=== PATIENT | male | born 2000 | race African-American/Black ===

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

== ENCOUNTER 2024-05-07 11:12 | Emergency (ER) | payer OTHER, SELFPAY ==
[2024-05-07 11:13] VITALS: BP 176/94; PULSE 80; RESP 16; TEMP 36.7; O2SAT 99; BMI 38.7
--- NOTE | 2024-05-07 11:46 | CT_ITS ---
STUDY: CT ABDOMEN AND PELVIS WITH CONTRAST REASON FOR EXAM: Male, 24 years old. Left lower quadrant pain RADIATION DOSAGE (If Supplied By Facility): CTDIvol = ( 17.08 ) mGy, DLP = ( 1287.10 ) mGycm TECHNIQUE: Transaxial images were obtained from the dome of the diaphragm to the symphysis pubis without oral contrast. IV 100mL Isovue-300 was administered. Sagittal and coronal images were reconstructed. Individualized dose optimization techniques were used for this CT. COMPARISON: Comparison is made with prior study dated November 28, 2016. FINDINGS: The visualized lung bases are unremarkable. The visualized portions of the heart are within normal limits. Normal liver. Normal gallbladder and extrahepatic biliary system. Normal spleen. Normal pancreas. Normal bilateral adrenal glands. Normal right kidney. Normal left kidney. Normal visualized stomach. Normal small intestine. There are scattered colonic diverticula consistent with diverticulosis. The appendix is visualized and appears normal. Normal abdominal aorta. Normal inferior vena cava. Normal retroperitoneum. Normal urinary bladder. Normal abdominal wall. Normal osseous structures. CT/Abdomen/Pelvis W IV Cont ONLY IMPRESSION: Scattered sigmoid diverticula. Electronically Signed: Vinayak Lee MD at 12:28 EDT ,
--- NOTE | 2024-05-07 11:47 | EDS_ITS ---
HPI HPI - GI History of Present Illness Chief Complaint: Abd Pain Narrative Narrative: 24-year-old male who denies significant past medical history presents from urgent care with lower quadrant pain that began on Tuesday, approximately 6 days ago. He states that he notices it more when he stands. It is hard for him to describe. He denies any fevers or chills, no nausea or vomiting. No dysuria or hematuria, no problems with bowel movements. He states that when he is being evaluated in urgent care, he had suprapubic to bilateral lower quadrant abdominal pain. They told him that he needed to immediately come to the emergency department because of his continued pain. PFSH PFS Home Medications ?Medication ?Instructions ?Recorded ?Last Taken ?Type albuterol sulfate 2.5 mg/3 mL 2.5 mg inhalation Q6H PRN PRN Sob 02/10/18 Unknown History (0.083 %) solution for nebulization &/Or Wheezing albuterol sulfate 90 mcg/actuation 1 - 2 puff inhalation Q6H PRN PRN 02/10/18 Unknown History aerosol inhaler (Ventolin HFA) Sob &/Or Wheezing Allergy/AdvReac Type Severity Reaction Status Date / Time azithromycin (From Zithromax) Allergy Hives Verified 05/07/24 11:15 Social History Smoking Status: Former smoker ROS ROS ED ROS Narrative Constitutional: No fever, no chills. HEENT: No sore throat. No neck pain. No loss of vision. No rhinorrhea. Cardiovascular: No chest pain. No palpitations. No pedal edema. Respiratory: No cough, no shortness of breath. Abdominal: Suprapubic to bilateral lower quadrant abdominal pain. No nausea. No vomiting. No diarrhea. Genitourinary: No dysuria. No hematuria. Musculoskeletal: No myalgias. No arthralgias. Neurologic: No headaches. No dizziness. No lightheadedness. Skin: No rash. No change in color. Psychiatric: No depression. No anxiety. EXAM Physical Exam Narrative Exam Narrative: Afebrile. Vital signs noted. HEENT: Normocephalic. Atraumatic. PERRL, EOMI. Neck soft and supple. No point tenderness or step off. Cardiovascular: Regular rate and rhythm. No murmurs, rubs, or gallops appreciated. Respiratory: No tachypnea. Lungs clear to auscultation bilaterally. Gastrointestinal: Abdomen soft, mild tenderness to palpation suprapubic to left lower quadrant with normoactive bowel sounds. No rebound or guarding. Neurological: Awake. Alert. Nonfocal, nonlateralizing. Skin: No rash. Normal color. No pallor. Musculoskeletal: No pedal edema. Full range of motion extremities. Const Vital Signs: 05/07/24 11:13 Temperature 98.1 F Temperature Source Temporal Pulse Rate 80 Respiratory Rate 16 Blood Pressure 176/94 H Blood Pressure Mean 121 Pulse Ox 99 Oxygen Delivery Method Room Air MDM MDM MDM Narrative Medical decision making narrative: Although on examination the patient has more left lower quadrant abdominal pain, he was complaining of right lower quadrant abdominal pain at urgent care. Differential diagnosis includes but not limited to acute appendicitis versus cy stitis versus diverticulitis. I have low suspicion for obstruction as the history and physical does not support this. He is showing no other signs for his abdominal pain. He may have more of an abdominal wall strain as well. Comprehensive workup was pursued. I reviewed his laboratory work and he has a normal white count of 7.2 with hemoglobin normal at 15.7, platelet count normal at 275. Electrolyte panel is grossly unremarkable, LFTs are normal with an AST of 21 and ALT of 27. I do not feel lipase is indicated because his pain is all lower. Urinalysis did show 10- 25 WBCs, but the patient is not having dysuria. Through shared decision making, urine will be sent for culture and I deferred antibiotics until cultures return. Upon repeat examination at approximately 1300, patient is resting comfortably. I am unsure as to the cause of his abdominal pain as I reviewed the CT radiology report which shows no evidence of an acute process. He may be having more abdominal wall pain and I do feel that [id number] medications are sufficient in treating his pain. He has diverticuli without evidence of diverticulitis. At this point in time, he will be discharged to follow-up with his primary care provider. Return instructions to the emergency department were reviewed. Disposition is discharged home in stable condition. History & Record Review Discussion w/independent historian: Patient Lab Data Attestation: I reviewed the patient's lab results. Labs: Laboratory Results - last 24 hr 05/07/24 05/07/24 11:35 11:53 WBC 7.2 RBC 5.85 Hgb 15.7 Hct 47.1 MCV 80.5 MCH 26.8 L MCHC 33.3 RDW Std Deviation 36.6 RDW Coeff of Coleman 12.7 Plt Count 275 MPV 9.1 Immature Gran % (Auto) 0.300 Neut % (Auto) 53.8 Lymph % (Auto) 37.7 [place] % (Auto) 6.5 Eos % (Auto) 1.0 Baso % (Auto) 0.7 Absolute Neuts (auto) 3.9 Absolute Lymphs (auto) 2.72 Nucleated RBC % 0 Sodium 138 Potassium 3.9 Chloride 107 Carbon Dioxide 26.0 Anion Gap 5 BUN 13 Creatinine 0.86 Estim Creat Clear Calc 176.82 Est GFR (MDRD) Af Amer 144 Est GFR (MDRD) Non-Af 119 BUN/Creatinine Ratio 15.2 Glucose 96 Calcium 9.3 Total Bilirubin 0.50 AST 21 ALT 27 Alkaline Phosphatase 63 Total Protein 7.4 Albumin 4.1 Globulin 3.3 Albumin/Globulin Ratio 1.2 Urine Color Yellow Urine Clarity Sl. Cloudy Urine pH 6.0 Ur Specific Pound 1.015 Urine Protein Negative Urine Glucose (UA) Normal Urine Ketones Negative Urine Occult Blood Negative Urine Nitrite Negative Urine Bilirubin Negative Urine Urobilinogen Normal Ur Leukocyte Esterase 100 H Urine RBC 0 SEEN Urine WBC 10-25 SEEN Ur Squamous Epith Cells 0-5 SEEN Urine Bacteria 1+ Urine Mucus 0 SEEN Radiography Diagnostic Testing: Clinical Impression(s) from Imaging Studies Abdomen/Pelvis CT 05/07/24 11:46 IMPRESSION: Scattered sigmoid diverticula. Electronically Signed: Vinayak Lee MD at 12:28 EDT , Discharge Plan Triage Chief Complaint: Abd Pain ED Provider: Javier Viera Dx/Rx/DC Orders Clinical Impression: Abdominal pain Instructions: ED Abdominal Pain Unkn Cause Male... Prescriptions: No Action albuterol sulfate 2.5 MG/3 ML solution for nebulization 2.5 mg inhalation Q6H PRN PRN (Reason: Sob &/Or Wheezing) albuterol sulfate [Ventolin HFA] 1 INHALER inhaler 1 - 2 puff inhalation Q6H PRN PRN (Reason: Sob &/Or Wheezing) Primary Care Provider: Omar Acuña Referrals: Mandy Jaramillo MD [Non-Staff] - Omar Acuña MD [Primary Care Provider] - 1 Week if not improving Print Language: Citizen Of [place] Disposition Disposition: Home, Self Care
[2024-05-07] MEDS: 0.9% Normal Saline (1000mL) 1,000 ML 999 ML IV (11:54)
[2024-05-07 11:55] LABS: Absolute Lymphocyte Count 2.72 X10^3/uL (0.83-4.51); Absolute Neutrophil Count 3.9 X10^3/uL (2.0-7.7); Basophil# 0.05 X10^3/uL; Basophil% 0.7 % (0-1); Eosinophil# 0.07 X10^3/uL; Hematocrit 47.1 % (40-54); Hemoglobin 15.7 g/dL (13.0-16.5); Lymphocyte # 2.72 X10^3/ul (0.83-4.51); Lymphocyte % 37.7 % (19-41); Mean Corp Hgb Conc 33.3 g/dL (32-36); Mean Corpuscular Hgb 26.8 pg (27.0-32.0); Mean Corpuscular Volume 80.5 fL (80-94); Mean Platelet Vol. 9.1 fl (6.2-12.0); Monocyte# 0.47 X10^3/uL; Monocyte% 6.5 % (0-10); NRBC Flagged by Analyzer 0 % (0-5); Neutrophil # 3.89 X10^3/uL (2.7-7.7); Neutrophil % 53.8 % (47-70); Platelet Count 275 K/mm3 (150-450); RBC Distribution Width CV 12.7 % (11.6-14.6); RBC Distribution Width SD 36.6 fl (35.1-43.9); Red Blood Count 5.85 M/mm3 (4.6-6.2); White Blood Count 7.2 K/mm3 (4.4-11.0)
[2024-05-07 11:58] LABS: Mucous, Urine 0 SEEN /hpf (<or=2+); Red Blood Cells-Urine 0 SEEN /hpf (0-5)
[2024-05-07 12:01] LABS: Color, Urine Yellow (Yellow); Glucose, Dipstick Normal (Normal); Ketone-Dipstick Negative (Negative); Leukocyte Esterase-Dipstick 100 /ul (Negative); Nitrite-Dipstick Negative (Negative); Occult Blood-Urine Negative /ul (Negative); Protein-Dipstick Negative (Negative); Specific Gravity, Urine 1.015 (1.002-1.030); Urine Bilirubin Dipstick Negative (Negative); Urine Clarity Sl. Cloudy (Clear); Urine Urobilinogen Normal (Normal)
[2024-05-07 12:08] LABS: Bacteria 1+ /hpf (None Seen); Squamous Epithelial Cells - UA 0-5 SEEN /hpf (0-5); White Blood Cells 10-25 SEEN /hpf (0-5)
[2024-05-07 12:10] LABS: ALB/GLOB Ratio 1.2 RATIO (0.9-2.4); AST(SGOT) 21 U/L (15-37); Alanine Aminotransfer ALT/SGPT 27 U/L (16-61); Albumin, Serum 4.1 g/dL (3.2-5.0); Alkaline Phosphatase 63 U/L (45-117); Anion Gap 5 (5-15); BUN 13 mg/dL (7-18); BUN/Creat Ratio 15.2 RATIO (10-20); Calcium,Total 9.3 mg/dL (8.5-10.1); Chloride 107 mmol/L (98-107); Creatinine, Serum 0.86 mg/dL (0.70-1.30); EST Glomerular Filtration Rate 119 mL/min (>60); Est Glom Filt Rate - Afr Amer 144 mL/min (>60); Estimated Creatinine Clearance 176.82 ml/min; Globulin 3.3 g/dL (2.2-4.2); Glucose 96 mg/dL (74-106); Potassium 3.9 mmol/L (3.5-5.1); Protein, Total 7.4 g/dL (6.4-8.2); Sodium Level 138 mmol/L (136-145)
[2024-05-07 13:13] VITALS: BP 162/81; PULSE 81; RESP 18; O2SAT 98
[2024-05-07 13:40] VITALS: BP 164/87; PULSE 81; RESP 18; TEMP 36.7; O2SAT 99
== END 2024-05-07 13:43 | disposition home or self-care (01) ==
PROVIDERS: Emergency Provider Emergency Medicine; PCP Internal Medicine; Visit Provider Emergency Medicine
DX: R10.32 Left lower quadrant pain (principal); Z87.891 Personal history of nicotine dependence
CPT/HCPCS: 74177; 80053; 81001; 85025; 87077; 87086; 87088; 87186; 99283; J7030; Q9967; A4216

== ENCOUNTER 2024-11-27 16:20 | Emergency (ER) | payer OTHER, SELFPAY ==
[2024-11-27 16:21] VITALS: BP 164/94; PULSE 73; RESP 18; TEMP 37.2; O2SAT 100; BMI 38.7
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
[2024-11-27 16:41] VITALS: O2SAT 100
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
[2024-11-27] MEDS: HYDROcodone Bitartrate/Apap 5/325 Tablet PO (18:07)
[2024-11-27 18:20] VITALS: PULSE 68; RESP 20; O2SAT 100
[2024-11-27 19:20] VITALS: BP 123/78; PULSE 68; RESP 20; TEMP 37.2; O2SAT 100
== END 2024-11-27 19:22 | disposition home or self-care (01) ==
PROVIDERS: Emergency Provider Emergency Medicine; PCP Internal Medicine; Visit Provider Emergency Medicine
DX: S16.1XXA Strain of muscle, fascia and tendon at neck level, initial encounter (principal); R51.9 Headache, unspecified; V43.51XA Car driver injured in collision with sport utility vehicle in traffic accident, initial encounter
CPT/HCPCS: 70450; 72125; 99282